=== PATIENT | male | born 1965 | race Caucasian/White ===

== ENCOUNTER 2020-09-20 13:55 | Emergency (ER) | payer OTHER ==
[2020-09-20 17:11] LABS: BUN/CREATININE RATIO 16 (0-10)
[2020-09-20 17:36] LABS: HEMOGLOBIN 12.5 gm/dl (14.0-17.5); RED BLOOD COUNT 3.74 M/UL (4.20-5.50); WHITE BLOOD COUNT 4.1 K/UL (4.5-11.0)
[2020-09-20] MEDS ORDERED: PROTONIX40 MG PO (17:59)
[2020-09-20] MEDS ORDERED: COLACE 100MG C100 MG PO (17:59)
[2020-09-20] MEDS ORDERED: ONDANSETRON ODT4 MG SL (17:59)
[2020-09-20] MEDS ORDERED: PRILOSEC OTC20 MG PO (18:13)
== END 2020-09-20 18:41 | disposition home or self-care (01) ==
LOC: ER1 13:55
PROVIDERS: Physician Assistant
DX: K59.00 Constipation, unspecified (principal); D64.9 Anemia, unspecified; R63.4 Abnormal weight loss; Z88.2 Allergy status to sulfonamides; Z88.8 Allergy status to other drugs, medicaments and biological substances; Z88.6 Allergy status to analgesic agent
CPT/HCPCS: 80053; 81001; 83690; 85025; 96374; 99284; C9113; Q9967